=== PATIENT | male | born 1965 | race Caucasian/White ===

== ENCOUNTER 2020-03-08 11:05 | Emergency (ER) | payer MEDICAID ==
[~2020-03-08] VITALS: Ht 177.8 cm; Wt 147.7 kg
[2020-03-08 11:07] VITALS: BP 133/89
[2020-03-08] MEDS ORDERED: NAPR-56 PO (12:52)
== END 2020-03-08 13:16 | disposition home or self-care (01) ==
LOC: ER 11:06
DX: M77.9 Enthesopathy, unspecified (principal); M79.672 Pain in left foot; E78.00 Pure hypercholesterolemia, unspecified; I10 Essential (primary) hypertension; F17.210 Nicotine dependence, cigarettes, uncomplicated; Z72.89 Other problems related to lifestyle; Z79.899 Other long term (current) drug therapy
CPT/HCPCS: 73630; 99283